=== PATIENT | male | born 1975 | race Caucasian/White ===

== ENCOUNTER 2018-04-04 11:18 | Emergency (ER) | payer SELFPAY ==
[2018-04-04 11:40] LABS: Bilirubin Negative (Negative); Blood, Urine Negative (Negative); Clarity CLEAR (Clear); Glucose, Urine (Dipstick) Negative (Negative); Leukocyte Negative (Negative); Nitrite Negative (Negative); Protein, Urine (Dipstick) Negative (Neg-Trace); Specific Gravity, Urine 1.026 (1.002-1.036); Urobilinogen 0.2 mg/dL (0.2-1.0); pH, Urine 5.5 (5.0-9.0)
[2018-04-04 11:57] LABS: #Lymphocytes 1.9 thou/uL (1.20-3.40); #Monocytes 0.6 thou/uL (0.11-0.59); #Neutrophils 4.1 thou/uL (1.40-6.50); %Basophils 0.7 % (0.0-1.0); %Eosinophils 0.7 % (0.0-10.0); %Lymphocytes 28.5 % (21.0-51.0); %Monocytes 8.4 % (0.0-10.0); %Neutrophils 61.8 % (42.0-75.0); Mean Corpuscular HGB CONC 35.3 g/dL (32.0-36.0); Mean Corpuscular Hemoglobin 31.2 pg (27.0-31.0); Mean Corpuscular Volume 88.5 fL (78.0-98.0); Mean Platelet Volume 7.4 fL (7.4-10.4); Platelet Count 295 thou/uL (130-400); RBC Distribution Width 12.4 % (11.5-14.5); Red Blood Cell (RBC) Count 5.12 mill/uL (4.70-6.10); White Blood Cell (WBC) Count 6.7 thou/uL (4.8-10.8)
[2018-04-04 12:14] LABS: Anion Gap 11 mmol/L (10-20); BUN (Urea Nitrogen) 10 mg/dL (8.9-20.6); Calc. Creatinine Clearance 0 mL/min (70-130); Calcium 9.3 mg/dL (7.8-10.44); Carbon Dioxide 22 mmol/L (22-29); Chloride 109 mmol/L (98-107); Estimated GFR-MDRD Greater than 90; Glucose 96 mg/dL (70-105); Potassium 3.8 mmol/L (3.5-5.1); Sodium 138 mmol/L (136-145)
--- NOTE | 2018-04-04 13:30 | CT ---
NONCONTRAST CT ABDOMEN AND PELVIS: 04/04/2018 HISTORY: Left-sided flank pain and dysuria. COMPARISON: None available. FINDINGS: There is minimal atelectasis at the right lung base. The lung bases are otherwise clear. There is d iminished attenuation of the liver, suggesting diffuse fatty infiltration, with mild focal sparing ad jacent to the gallbladder. There is a subcentimeter, [id number]-[id number]-[id number]-characterize, hypodense lesion at the superior pole right kidn ey. No renal or ureteral calculi are seen bilaterally, and there is no hydronephrosis. The urinary bladder is incompletely distended but normal in appearance. The spleen, pancreas, and bilateral adrenal glands demonstrate a grossly normal, nonenhanced CT appea jenaro. The appendix is visualized and is normal in caliber. The small bowel is normal in caliber. No free fluid, fluid collection, or lymphadenopathy is seen in the abdomen or pelvis. There is irregularity involving the posterior-superior endplate of the L2 vertebral body with low den sity material and what appears to be peripheral calcification or ossification seen posteriorly at thi s level, and this could represent a Schmorl's node in the posterior-superior endplate, with retropuls ion of the most posterior-superior endplate, in addition to disk bulge at the L1-L2 level, which is l ikely peripherally calcified posteriorly. This does result in narrowing of the central spinal canal with mild to moderate narrowing of the central spinal canal. There is calcification of a disk bulge at the T12-L1 level. This results in only minimal effacement of the ventral subarachnoid space. IMPRESSION: 1. No renal or ureteral calculi are seen bilaterally, and there is no hydronephrosis. 2. Tiny, subcentimeter, [id number]-characterize, hypodense lesions in the superior pole right kidn ey and inferior pole left kidney. 3. Fatty infiltration of the liver with fatty sparing adjacent to the gallbladder. 4. No CT evidence of appendicitis. 5. Degenerative changes in the lumbar spine, including what appears to be a combination of disk bulg e, as well as a probable Schmorl's node at the most posterior-superior endplate of the L2 vertebral b yuliana, with associated retropulsion of the posterior-superior margin of the L2 vertebral body, and this in combination with the disk bulge, which is peripherally calcified, does result in mild to moderate narrowing of the central spinal canal at the L1-2 level. POS: [facility]
[2018-04-04] MEDS ORDERED: Morphine 10 MG/ML VIAL ONE (13:56)
[2018-04-04] MEDS ORDERED: Dexamethasone 4 MG TAB ONE (13:57)
== END 2018-04-04 14:39 | disposition home or self-care (01) ==
LOC: ERS 11:18
DX: M51.36 Other intervertebral disc degeneration, lumbar region (principal)
CPT/HCPCS: 36415; 74176; 80048; 81003; 85025; 96372; J2270; J8540